=== PATIENT | female | born 1960 | race Caucasian/White ===

== ENCOUNTER 2018-06-26 20:44 | Emergency (ER) | payer OTHER ==
[2018-06-26 21:18] LABS: BASOPHILS # (AUTO) 0.1 10^3/uL (0.0-0.1); BASOPHILS % (AUTO) 0.8 %; EOSINOPHILS # (AUTO) 0.1 10^3/uL (0.0-0.7); EOSINOPHILS % (AUTO) 0.7 %; HGB - HEMOGLOBIN 13.4 g/dL (12.0-16.0); LYMPHOCYTES # (AUTO) 1.8 10^3/uL (1.5-3.5); LYMPHOCYTES % (AUTO) 23.5 %; MEAN CORPUSCULAR HEMOGLOBIN 29.6 pg (27.0-31.0); MEAN CORPUSCULAR VOLUME 87.1 fL (81.0-99.0); MEAN PLATELET VOLUME 7.5 fL (7.9-10.8); MONOCYTES # (AUTO) 0.6 10^3/uL (0.0-1.0); MONOCYTES % (AUTO) 7.4 %; NEUTROPHILS # (AUTO) 5.1 10^3/uL (1.5-6.6); NEUTROPHILS % (AUTO) 67.6 %; PLT - PLATELET COUNT 355 10^3/uL (130-450); RED BLOOD COUNT 4.54 10^6/uL (4.20-5.40); WHITE BLOOD COUNT 7.5 x10^3/uL (4.8-10.8)
[2018-06-26 21:29] LABS: BILIRUBIN,URINE NEGATIVE (NEGATIVE); GLUCOSE, URINE (UA) NEGATIVE (NEGATIVE); KETONES,URINE (UA) NEGATIVE (NEGATIVE); LEUKOCYTE ESTERASE, URINE NEGATIVE (NEGATIVE); NITRITE,URINE NEGATIVE (NEGATIVE); OCCULT BLOOD,URINE MODERATE (NEGATIVE); PH,URINE 7.5 PH (5.0-7.5); PROTEIN,URINE NEGATIVE (NEGATIVE); UROBILINOGEN,URINE 0.2 (NORMAL) E.U./dL (NORMAL)
[2018-06-26] MEDS ORDERED: ONDANSETRON 4 MG/2 ML VIAL IVP STA (21:31)
[2018-06-26] MEDS ORDERED: KETOROLAC 60 MG/2 ML VIAL IVP STA (21:31)
[2018-06-26] MEDS ORDERED: SODIUM CHLORIDE 0.9% 1,000 ML IV ONE (21:32)
[2018-06-26] MEDS ORDERED: LIDOCAINE-MPF 2% 6 ML in SODIUM CHLORIDE 0.9% 50 ML IV STA (21:32)
[2018-06-26 21:34] LABS: BACTERIA,URINE None Seen /HPF (None Seen); CLARITY,URINE CLEAR (CLEAR); SQUAMOUS EPITHELIAL CELL,UR MOD Squamous (<= Few)
[2018-06-26 21:34] LABS: ALBUMIN 4.1 g/dL (3.2-5.5); BILIRUBIN,TOTAL 0.4 mg/dL (0.2-1.0); CALCIUM 9.1 mg/dL (8.5-10.3); CREATININE 0.7 mg/dL (0.4-1.0); TOTAL PROTEIN 8.1 g/dL (6.7-8.2)
--- NOTE | 2018-06-26 21:36 | ED Physician Documentation ---
History of Present Illness - Stated complaint Stated Complaint: LEFT LOWER BACK PAIN - Chief complaint Chief Complaint: Abd Pain - History obtained from History obtained from: Patient, Family - History of Present Illness Timing: Last night Pain level max: 10 Pain level now: 10 - Additonal information Additional information: Patient is a 57-year-old female who presents to the emergency department left flank pain that started suddenly last night. Now radiating around to the lower abdomen. Nothing makes it better or worse. Has not taken anything for the pain other than Tylenol earlier today. Has had nausea but no vomiting. States had cloudy urine and a temperature of 101 degrees at home. Has never had kidney stones in the past. Is on estradiol at home. No allergies to medication. No diarrhea, constipation Review of Systems Ten Systems: 10 systems reviewed and negative Constitutional: denies: Chills Ears: denies: Ear pain Nose: denies: Rhinorrhea / runny nose, Congestion Cardiac: denies: Chest pain / pressure Respiratory: denies: Cough GI: denies: Abdominal Pain, Nausea, Vomiting, Diarrhea : denies: Dysuria, Frequency, Hesitancy Skin: denies: Rash Musculoskeletal: denies: Neck pain Neurologic: denies: Focal weakness, Numbness, Headache PD PAST MEDICAL HISTORY - Past Medical History Past Medical History: Yes Respiratory: Asthma, Pneumonia - Past Surgical History Past Surgical History: Yes Ortho: Rotator cuff repair /[employer]: Hysterectomy - Present Medications Home Medications: Ambulatory Orders Medication Instructions Recorded Confirmed Ibuprofen [Motrin] 800 mg PO Q8H PRN #30 tablet 06/26/18 Ondansetron Odt [Zofran] 4 mg TL Q6H PRN #10 tablet 06/26/18 Oxycodone HCl/Acetaminophen 1 - 2 each PO Q6H PRN #10 tablet 06/26/18 [Percocet 5-325 mg Tablet] Qysemia 7.5 mg PO DAILY 06/26/18 - Allergies Allergies/Adverse Reactions: Allergies Allergy/AdvReac Type Severity Reaction Status Date / Time No Known Drug Allergies Allergy Verified 06/26/18 21:34 - Social History Does the pt smoke?: No Smoking Status: Never smoker Does the pt drink ETOH?: No Does the pt have substance abuse?: No - Immunizations Immunizations are current?: Yes - POLST Patient has POLST: No PD ED PE NORMAL - Vitals Vital signs reviewed: Yes - General General: Alert and oriented X 3, Well developed/nourished, Other (Appears in pain) - HEENT HEENT: Moist mucous membranes - Neck Neck: Supple, no meningeal sign - Cardiac Cardiac: RRR - Respiratory Respiratory: No respiratory distress, Clear bilaterally - Abdomen Abdomen: Soft, Non tender, Non distended - Back Back: No CVA TTP - Derm Derm: Warm and dry, No rash - Extremities Extremities: No edema - Neuro Neuro: Alert and oriented X 3 - Psych Psych: Normal mood, Normal affect Results - Vitals Vitals: Vital Signs - 24 hr 06/26/18 06/26/18 06/26/18 20:47 21:58 22:29 Temperature 36.8 C Heart Rate 78 66 68 Respiratory 16 18 20 Rate Blood Pressure 182/102 H 136/84 H 135/95 H O2 Saturation 98 99 100 06/26/18 06/26/18 06/26/18 22:52 23:09 23:47 Temperature Heart Rate 81 77 72 Respiratory 20 15 16 Rate Blood Pressure 149/78 H 135/71 H 125/72 O2 Saturation 100 97 100 Oxygen O2 Source Room air - Labs Labs: Laboratory Tests 06/26/18 06/26/18 06/26/18 21:00 21:05 21:05 WBC 7.5 RBC 4.54 Hgb 13.4 Hct 39.5 MCV 87.1 MCH 29.6 MCHC 34.0 RDW 13.0 Plt Count 355 MPV 7.5 L Neut # (Auto) 5.1 Lymph # (Auto) 1.8 Stokes # (Auto) 0.6 Eos # (Auto) 0.1 Baso # (Auto) 0.1 Absolute Nucleated RBC 0.00 Nucleated RBC % 0.0 Sodium 137 Potassium 3.1 L Chloride 106 Carbon Dioxide 26 Anion Gap 5.0 L BUN 14 Creatinine 0.7 Estimated GFR (MDRD) 87 L Glucose 74 Calcium 9.1 Total Bilirubin 0.4 AST 16 ALT 14 Alkaline Phosphatase 86 Total Protein 8.1 Albumin 4.1 Globulin 4.0 Albumin/Globulin Ratio 1.0 Lipase 36 Urine Color YELLOW Urine Clarity CLEAR Urine pH 7.5 Ur Specific [place] 1.010 Urine Protein NEGATIVE Urine Glucose (UA) NEGATIVE Urine Ketones NEGATIVE Urine Occult Blood MODERATE H Urine Nitrite NEGATIVE Urine Bilirubin NEGATIVE Urine Urobilinogen 0.2 (NORMAL) Ur Leukocyte Esterase NEGATIVE Urine RBC 6-10 H Urine WBC 0-3 Ur Squamous Epith Cells MOD Squamous H Urine Bacteria None Seen Ur Microscopic Review INDICATED Urine Culture Comments NOT INDICATED - Rads (name of study) CT abd/pelvis Radiology: Prelim report reviewed, EMP read contemporaneously, See rad report (No evidence of nephrolithiasis or hydronephrosis. 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 Correlation with surgical history is recommended. ) PD MEDICAL DECISION MAKING - ED course Complexity details: reviewed results, re-evaluated patient, considered differential, d/w patient, d/w family ED course: Patient is a 57-year-old female with what appears to be a left-sided ureteral stone, possible to small to visualize versus recently passed stone. Pain resolved in the emergency department. Does have hematuria. She is well- appearing, nontoxic. No evidence of UTI or pyelonephritis. Will place on pain medication for home and follow-up closely with her doctor. Patient counseled regarding signs and symptoms for which I believe and urgent re-evaluation would be necessary. Patient with good understanding of and agreement to plan and is comfortable going home at this time This document was made in part using voice recognition software. While efforts are made to proofread this document, sound alike and grammatical errors may occur. No evidence of aortic dissection, renal artery dissection or aortic aneurysm Departure - Departure Disposition: 01 Home, Self Care Clinical Impression: Flank pain Condition: Good Instructions: ED Abdominal Pain Unkn Cause, ED Stone Renal Passed Follow-Up: Provider,Other [Primary Care Provider] - Within 1 week Prescriptions: Ibuprofen [Motrin] 800 mg PO Q8H PRN #30 tablet PRN Reason: PAIN &/OR FEVER Ondansetron Odt [Zofran] 4 mg TL Q6H PRN #10 tablet PRN Reason: Nausea / Vomiting Oxycodone HCl/Acetaminophen [Percocet 5-325 mg Tablet] 1 - 2 each PO Q6H PRN #10 tablet PRN Reason: pain Comments: Drink plenty of fluids. Return if you worsen. This should improve over the next 24-48 hours. Make sure to follow-up with your doctor for further care. On your CT scan there are hydrosalpinx tonight, these are likely not dangerous but should be followed up with your doctor. Do not drink alcohol or drive while on narcotic pain medicine. Note that many narcotic pain relievers also contain tylenol/acetaminophen. Please ensure that your total dose of acetaminophen from all sources does not exceed 3 grams (3000mg) per day. You may constipated on this medication, take a stool softener such as "Colace" twice a day while you are on it. Also recommend a uoxl-twb-dinlilo laxative such as senna or MiraLAX any day that you do not have a bowel movement. If you received narcotic pain medication in the emergency department, do not drive or operate machinery for the next 24 hours. Discharge Date/Time: 06/27/18 00:00
[2018-06-26] MEDS ORDERED: HYDROmorphone 1 MG/ML CARPUJECT IVP STA (22:38)
--- NOTE | 2018-06-26 22:42 | CT Report ---
Reason: L flank pain, poss renal stone Procedure Date: 06/26/2018 Accession Number: [id number] / [id number] Procedure: CT - Abdomen/Pelvis W/O CPT Code: FULL RESULT: EXAM: CT ABDOMEN AND PELVIS (CT KUB) EXAM DATE: 06/26/2018 10:25 PM. CLINICAL HISTORY: L flank pain, poss renal stone. COMPARISONS: None. TECHNIQUE: Routine axial helical CT imaging was performed through the abdomen and pelvis without IV contrast. Reconstructions: Coronal and sagittal. In accordance with CT protocol optimization, one or more of the following dose reduction techniques were utilized for this exam: automated exposure control, adjustment of mA and/or KV based on patient size, or use of iterative reconstructive technique. FINDINGS: Lung Bases: Unremarkable. Right Kidney/Ureter: No stones, hydronephrosis, or hydroureter. No perinephric fat stranding. Left Kidney/Ureter: No stones, hydronephrosis, or hydroureter. No perinephric fat stranding. Other Solid Organs: Noncontrast images of the solid organs are grossly unremarkable. Gallbladder/Bile Ducts: Postoperative changes of cholecystectomy. No biliary dilatation. Peritoneal Cavity: No free fluid, free air or ranjith adenopathy. Bowel is grossly unremarkable. Pelvic Organs: The uterus is surgically absent. There are somewhat tubular fluid-filled structures in both adnexa, with associated surgical clips, likely representing previous tubal ligation clips. On the right, the structure measures approximately 16 x 5 x 5 cm, and on the left 6 x 5 x 4 cm. These may represent hydro-salpinges. The urinary bladder is unremarkable. Vasculature: Unremarkable. Other: None. IMPRESSION: No evidence of nephrolithiasis or hydronephrosis. 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 Correlation with surgical history is recommended. [facility]
[2018-06-26] MEDS ORDERED: ONDANSETRON ODT 4 MG Prepack 2 TL PRN (23:45)
[2018-06-26] MEDS ORDERED: oxyCODONE/ACET 5/325 Prepack 4 PO STA (23:45)
[2018-06-26 23:47] VITALS: BP 125/72
== END 2018-06-27 | disposition home or self-care (01) ==
LOC: ED 20:44
DX: R10.9 Unspecified abdominal pain (principal); R31.9 Hematuria, unspecified
CPT/HCPCS: 36415; 74176; 80053; 81001; 83690; 85025; 96374; 96375; 99283; 99284; J1170; J7040; 81003; 87086